=== PATIENT | female | born 1970 | race Caucasian/White ===

== ENCOUNTER 2018-01-21 14:18 | Outpatient (CLI) | payer OTHER | END 2018-01-21 14:25 | disposition home or self-care (01) | LOC: SONOGRAMA 14:18 → EDBD 14:18 → SONOGRAMA 14:25 | DX: N25.0 Renal osteodystrophy (principal) ==

== ENCOUNTER 2019-05-26 11:43 | Outpatient (CLI) | payer OTHER | END 2019-05-26 11:52 | disposition home or self-care (01) | LOC: RAD 11:43 → MAMO-SONO 11:45 → RAD 11:52 | DX: M06.4 Inflammatory polyarthropathy (principal) ==

== ENCOUNTER 2023-12-25 14:46 | Outpatient (CLI) | payer OTHER | END 2023-12-25 14:55 | disposition home or self-care (01) | LOC: SONOGRAMA 14:46 | PROVIDERS: ATTEND Pathology Anatomic Pathology & Clinical Pathology | DX: D34 Benign neoplasm of thyroid gland (principal); E07.89 Other specified disorders of thyroid; E04.1 Nontoxic single thyroid nodule ==